=== PATIENT | female | born 1980 | race African-American/Black ===

== ENCOUNTER 2016-12-13 19:23 | Emergency (ER) | payer SELFPAY ==
[~2016-12-13] VITALS: Ht 180.3 cm; Wt 90.7 kg
[2016-12-13 19:25] VITALS: BP 135/94
[2016-12-13] MEDS ORDERED: ATEN50TA8 PO (19:39)
[2016-12-13] MEDS ORDERED: ZOLP5TAB1 PO (19:39)
[2016-12-13] MEDS ORDERED: [UNRECOGNIZED DRUG - REMARK] (19:40)
[2016-12-13] MEDS ORDERED: gabapentin (19:40)
--- NOTE | 2016-12-13 19:40 | NUR ---
Patient BIB [facility] [employer] to be evaluated as pre-book by Dr. Heller. RN evaluating patient at bedside.
--- NOTE | 2016-12-13 19:45 | NUR ---
36 Y/O F BIB [facility] [employer] FOR PREBOOK CLEARANCE, PT TACHY, NO OTHER S/S OF DISTRESS NOTED, PT DENIES ANY PAIN. ER MADE AWARE.
[2016-12-13] MEDS ORDERED: NACL 0.9% 1,000 ML IV ONE (19:55)
--- NOTE | 2016-12-13 20:10 | NUR ---
PT REFUSED MED AND ANY TIME OF TX OR LABS. MIRANDA SCHRADER NOTIFIED, GREGORY WOOD AT BEDSIDE.
[2016-12-13 20:17] VITALS: BP 136/96
--- NOTE | 2016-12-13 20:17 | NUR ---
DPatient does not wish to proceed with medical care recommended by DR LUCIA. Patient given information related to possible complications, up to and including , which could occur as a result of leaving hospital at this time. Patient verbalizes understanding of risks involved leaving against medical advice. [id number] has signed AMA form.
--- NOTE | 2016-12-13 20:17 | NUR ---
Patient discharged with v/s stable. Written and verbal after care instructions given and explained. Patient verbalized understanding. Police with in custody. All questions addressed prior to discharge. Advised to follow up with PMD.
== END 2016-12-13 20:17 ==
LOC: MED 19:23
DX: Z02.89 Encounter for other administrative examinations (principal); R03.0 Elevated blood-pressure reading, without diagnosis of hypertension; Z88.6 Allergy status to analgesic agent; Z86.73 Personal history of transient ischemic attack (TIA), and cerebral infarction without residual deficits
CPT/HCPCS: 99283